=== PATIENT | male | born 1990 | race Caucasian/White ===

== ENCOUNTER 2022-05-15 17:13 | Emergency (ER) | payer MEDICAID ==
[~2022-05-15] VITALS: Ht 180.3 cm; Wt 72.7 kg
[~2022-05-15 17:13] MED LIST: APIX5TAB PO; QUET25TA PO; QUET25TA36 PO
[2022-05-15 17:17] VITALS: BP 125/81
== END 2022-05-15 19:45 | disposition left against medical advice (07) ==
LOC: EMS 17:13
DX: M79.641 Pain in right hand (principal); M79.632 Pain in left forearm; M79.89 Other specified soft tissue disorders; Z53.21 Procedure and treatment not carried out due to patient leaving prior to being seen by health care provider